=== PATIENT | female | born 1995 ===

== ENCOUNTER 2025-04-26 15:23 | Outpatient (AMB) | payer OTHER, SELFPAY ==
--- NOTE | 2025-04-26 15:34 | MHC.OFFVIS ---
Intake Visit Reasons: 6m bft migraine Allergies No Known Allergies Allergy (Verified 04/26/25 15:39) Medication List - Last Reconciled 04/26/25 by Mary Cortez CNP amitriptyline 20 mg PO aripiprazole 15 mg PO DAILY bupropion HCl XL 300 mg PO DAILY hydroxyzine HCl 25 mg PO DAILY ondansetron HCl mg PO propranolol ER (Inderal LA) 80 mg PO DAILY 90 days sumatriptan succinate mg PO HPI Comments Details: She was doing okay. Migraines were okay, getting about 4/month. Sumatriptan or Aleve as needed helped. Tremors were controlled with propranolol. No functional impairment. No difficulty eating or drinking. Sleep was okay. She was found to have elevated liver enzymes on lab testing, and had u/s and MRI which showed fatty-liver.? She started to get more migraines around 05/2024, having 13 migraines that month, 7 migraines in 06/2024, and 9 in 07/2024.?She lowered propranolol to 80mg as she was drowsy and attributed it to higher dose of propranolol. Began with migraines 2x/month in 12/2020. Grandmother has migraines. Has had tremors noted mostly in her hands since 2013 that got worse in 2019. Coworkers at work remarked about her hands shaking. Does not cause functional impairment. Strong family hx on father's side of tremors. Tremors worse with anxiety and stress. Does not consume any caffeine. She has been on high dose of Wellbutrin. No problems with mobility. [facility] Medical History (Updated 04/26/25 @ 15:36 by Mary Cortez CNP) Migraine PCOS (polycystic ovarian syndrome) Irritable bowel syndrome with diarrhea Depression with anxiety Benign familial tremor Family History (Updated 04/26/25 @ 15:38 by Mary Cortez CNP) Paternal Grandfather Tremor Sister Tremor Review of Systems Const Denies chills, Denies daytime sleepiness, Denies difficulty sleeping, Denies fatigue, Denies fever(s), Denies frequent falls, Reports headache(s), Denies increased appetite, Denies poor appetite, Denies snoring, Denies weakness, Denies weight gain and Denies weight loss Eyes Denies loss of vision ENT Denies vertigo, Denies dizziness, Reports headache(s) and Denies neck pain Card Denies chest pain at rest, Denies chest pain with activity, Denies syncope, Denies leg edema, Denies palpitations, Denies dyspnea and Denies dyspnea on exertion Resp Denies cough, Denies dyspnea, Denies dyspnea on exertion and Denies snoring GI Denies abdominal pain, Denies constipation, Denies heartburn, Denies diarrhea and Denies nausea Denies urinary frequency, Denies urinary incontinence and Denies urinary urgency Musc Denies abnormal gait, Denies back pain, Denies myalgias, Denies arthralgias, Denies neck pain, Denies numbness and Denies tingling Neuro Denies abnormal gait, Denies vertigo, Denies dizziness, Denies syncope, Denies frequent falls, Reports headache(s), Denies lack of coordination, Denies loss of vision, Denies memory loss, Denies numbness, Denies Other visual disturbances, Denies restless legs, Denies seizure-like activity, Denies tingling, Denies paresthesias, Reports tremor(s) and Denies weakness Psych Reports anxiety, Reports depression, Denies auditory hallucinations, Denies memory loss and Denies visual hallucinations Endo Denies fatigue and Denies palpitations Physical Exam Const Other: General Appearance:? normal, in no acute distress. Heart:? S1, S2 normal, no murmurs. Lungs:? clear anteriorly and posteriorly. Musculoskeletal:? normal. Extremities:? no edema. Psych:? alert, oriented, cognitive function intact, cooperative with exam. Neuro Other: Abnormal Neurological Findings:?Tremors of?bilateral upper extremities when held in an extended position with low amplitude high frequency tremor. Normal tone. No rest tremor. No change head or truncal tremor noted Mental Status: alert and oriented X 3. Normal attention, orientation, memory, and affect. Cranial Nerves: Pupils are equal, round, and reactive to light. External ocular muscles are intact. Visual munson are full, no ptosis. Face is symmetrical, no facial weakness or droop. Facial sensations are normal. Tongue protrudes in midline. Palate elevates symmetrically. Shoulder shrugging is normal Motor Examination: Normal muscle tone, bulk and strength. No atrophy or fasciculations. No drift of the extended upper extremities. DTR 2+. Plantars are flexor. Sensory Exam: Normal light touch, temperature, pinprick, vibration, and joint-position sensations. Rhomberg sign is absent. Coordination: No ataxia. No titubation. Bmegkt-ig-knpr, jmbu-hhyt-tgki test, and rapid alternating movements were normal. Gait Exam: Within normal limits. Cerebellar Signs: Fbwmpq-hh-hleq and wuvq-gz-vijs is normal. No dysdiadochokinesia. Extrapyramidal System: Tremor as above. No rigidity with normal facial expressions. No bradykinesia. No bradyphrenia. Normal arm swing and posture. No propulsion or retropulsion. Speech: Normal. No dysphasia or dysarthria. Assessment & Plan Assessment & Plan (1) Migraine: Code(s): G43.909 - Migraine, unspecified, not intractable, without status migrainosus Category: Medical Qualifiers: Migraine type: unspecified Status migrainosus presence: without status migrainosus Intractability: not intractable Qualified Code(s): G43.909 - Migraine, unspecified, not intractable, without status migrainosus Plan: Continue amitriptyline 10mg 2 tablets at bedtime. Continue sumatriptan 100mg 1 tablet as needed for migraine. Continue ondansetron 4mg 1 tablet as needed for nausea/vomiting. (2) Benign familial tremor: Code(s): G25.0 - Essential tremor Category: Medical Plan: Continue propranolol ER 80mg 1 capsule daily. Plan Meds tried: topiramate, propranolol (unable to tolerate >80mg), amitriptyline, sumatriptan Medications: New amitriptyline 20 mg (2 x 10 mg) PO BEDTIME 180 tabs 1RF 90 days Coding Level of Care Code Est Pt Level 4 (22654) Diagnoses Migraine without status migrainosus, not intractable, unspecified migraine type G43.909 Migraine type: unspecified Status migrainosus presence: without status migrainosus Intractability: not intractable Benign familial tremor G25.0
--- OUTSIDE RECORDS SUMMARY | 2025-04-26 16:39 | XMS_ITS | Clinical Summary ---
Author Organization [facility] Address [address] [place] [address] Phone Care Team Providers Care Embryology Professor Name Role Phone Vanessa Christina LICENSING OFFICER Primary Care Provider Un available Immunizations Immunization Administration Dates Next Due DTP 03/29/1998, 7,01/26/1997, 997 DTaP 5 10/22/2001 Hep A, ped/adol 06/08/2013,11/17/2012 Hep B, ped/adol 04/20/1997,1996,1996 Hib (PRP-T) 03/29/1998, 7,01/26/1997, 997 IPV 10/22/2001 MMR 10/19/2004,10/26/1997 Meningococcal Conj (Menactra) MCV4P 09/16/2013 OPV 04/20/1997,01/26/1997,1996 Tdap 02/02/2009 Typhoid, ViCPs 11/17/2012 Family History Relation Name Status Comments Brother Alive Brother: Alive and well Father Father: Cranial nerve palsy, cancer, skin, Obesity, Diabetes mellitus, Hyperlipidemia Mother Alive Mother: Hashimo to's Thyroiditis Niece Alive Niece: Alive an d well Other No family histo ry of *Sudden /VA under 55, No family history of *Thrombophilia, Family history of *Dental caries, Family history of *Heart Disease, No family history of *CVA/Stroke, Family history of Migraines Sister Alive Sister: Alive a nd well Social History Tobacco Use Types Packs/Day Years Used Date Smoking Tobacco: Never Comments:Never smoker Comments Unknown Sex and Gender Information Value Date Recorded Sex Assigned at Not on file Legal Sex Female 4:56 PM EDT Gender Identity Not on file Sexual Orientation Not on file Last Filed Vital Signs Vital Sign Reading Time Taken Comments Blood Pressure 116/70 12/01/2014 12:00 AM EDT Pulse 106 12/01/2014 12:00 AM EDT Temperature 36.5 C (97.7 F) 06/23/2014 12:00 AM EDT Respiratory Rate - - Oxygen Saturation - - Inhaled Oxygen Concentration - - Weight 50.6 kg (111 lb 9.6 oz) 12/01/2014 12:00 AM EDT Height 165.1 cm (5' 5 ) 12/01/2014 12:00 AM EDT Body Mass Index 18.57 12/01/2014 12:00 AM EDT Plan of Treatment Health Maintenance Due Date Last Done Comments Varicella Vaccines (1 of 2 - 13+ 2-dose series) 2009 DTaP,Tdap,and Td Vaccines (7 - Td or Tdap) 02/02/2019 02/02/2009, 10/22/2001, 03/29/1998, Additional history exists HPV Vaccines (1 - 3-dose SCDM series) 2023 COVID-19 Vaccine (2023- season) 2024 Influenza Vaccines (#1) 2025 Hepatitis B Vaccines Completed 04/20/1997, 1996, 1996 HIB Vaccines Completed 03/29/1998, 04/08, 01/26/1997, Additional history exists IPV Vaccines Completed 10/22/2001, 04/08, 01/26/1997, Additional history exists MMR Vaccines Completed 10/19/2004, 10/26/1997 Hepatitis A Vaccines Completed 06/08/2013, 11/18/19 13 Meningococcal Vaccine Completed 09/16/2013 Men B Vaccine Aged Out No longer elig ible based on patient's age to complete this topic Pneumococcal Vaccine Aged Out No long er eligible based on patient's age to complete this topic Care Teams Embryology Professor Relationship Specialty Start Date End Date Christina Mendez NP PCP - General 04/18/17
--- OUTSIDE RECORDS SUMMARY | 2025-04-26 16:39 | XMS_ITS | Patient Health Record ---
Author Organization [facility] Address [address] [place] [address] Care Team Providers Care Pyridine Recovery Operator Name Role Phone Heladio Gipson Primary Care Provider Che Wood Unavailable [phone] Allergies Allergen (clinical drug ingredient) Drug/Non Drug Allergy documented on EMR Reaction Allergy Type Onset Date Status Seasonal IC ITCHY EYES AND RUNNY NOSE Drug Allergy Active Reason For Referral No Information Medications Medication SIG (Take, Route, Frequency, Duration) Notes Start Date End Date Status buPROPion HCl ER (XL) 300 MG TAKE 1 TABLET BY MOUTH EVERY MORNING Oral; Duration: 90 Days Active SUMAtriptan Succinate 100 MG TAKE 1 TABLET BY MOUTH AT ONSET OF MIGRAINE EVERY 4 HOURS UP TO TWICE A DAY Oral; Duration: 22 Days Active ARIPiprazole 20 MG 1 tablet Orally Once a day; Duration: 30 day(s) 03/26/2023 Active Propranolol HCl ER 80 MG TAKE 1 CAPSULE BY MOUTH EVERY DAY Oral; Duration: 90 Days Active Cephalexin 500 MG 1 capsule Orally rodrick ry 12 hrs; Duration: 3 days Not-Taking Social History Tobacco Use: Social History Observation Description Date Details (start date - stop date) Never Smoker NA - NA Tobacco Use/Smoking Question Answer Notes Are you a: nonsmoker Additional Findings: Tobacco Non-User Current no n-smoker Alcohol Screen Question Answer Notes Did you have a drink containing alcohol in the p ast year? No Points 0 Interpretation Negative Tobacco use other than smoking: Question Answer Notes Are you an other tobacco user? No Plan Of Treatment No Information Insurance Providers Payer Name Payer Address Payer Phone Subscriber Number Group Number Insured Name Patient Relationship to Insured Coverage Start Date Coverage End Date [facility] [address] [facility] [place] [place] [address] [id number] Lily Crockett Self - patient is the insured Medical (General) History Medical History History ICD Code Anxiety Depression Headaches Chicken pox
--- OUTSIDE RECORDS SUMMARY | 2025-04-26 16:39 | XMS_ITS | Patient Health Record ---
Author Organization [facility] Address [address] [place] [id number] Care Team Providers Care Weighmaster Name Role Phone NIK () ANJELICA Primary Care Provider U Lynda Huerta Unavailable [phone] Allergies No Known Allergies Results Component Value Reference Range Notes Urinalysis Reviewed date:04/26/2024 03:08:16 PM Interpretation: Performing Lab: Notes/Report: PH 8.0 PROTEIN Neg GLUCOSE Neg BLOOD Neg Reason For Referral No Information Medications Medication SIG (Take, Route, Frequency, Duration) Notes Start Date End Date Status Claritin 10 MG 1 tablet Orally Once a day; Duration: 30 day(s) Active Kariva 0.15-0.02/0.01 MG (/5) 1 tablet Orally Once a day CONTINUOUSLY; Duration: 90 days 04/26/2024 Active buPROPion HCl ER (XL) 300 MG 1 tablet in the morning Orally Once a day Active ARIPiprazole 20 MG TAKE 1 TABLET BY EVERY DAY Oral; Duration: 30 Active Kariva 0.15-0.02/0.01 MG (21/5) 1 tablet Orally Once a day, Skip the last week of the pill pack and start a new pack right away. Take continuously; Duration: 90 days 04/18/2022 Active Propranolol HCl ER 80 MG 1 capsule Orall y Once a day Active Social History Tobacco Use: Social History Observation Description Date Details (start date - stop date) Never Smoker NA - NA Sexual History Question Answer Notes Had sex in the past 12 months (vaginal, oral, or anal)? No Have you ever had a Sexually transmitted disease ? No AUDIT-C (Standard) Question Answer Notes Did you have a drink containing alcohol in the p ast year? 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) Active confirmed Problem Oligomenorrhea (79616502) Oligomenorrhea, unspecified (N91.5) Active confirmed Problem Functional urinary incontinence (889384903) Functional urinary incontinence (R39.81) Active confirmed Problem Polycystic ovarian syndrome (E28.2) Active confirmed Vital Signs Temperature 98.1 degrees Fahrenheit 04/26/2024 Blood pressure diastolic 84 mm Hg 04/26/2024 Height 64 in 04/26/2024 Blood pressure systolic 110 mm Hg 04/26/2024 Weight 173 lbs 04/26/2024 BMI 29.69 kg/m2 04/26/2024 Encounters Encounter Location Date Provider Diagnosis [address] [facility] [address] [address] 04/26/2024 Lynda Rizo Encounter for gynecological examination (general) (routine) without abnormal findings Z01.419 ; Polycystic ovarian syndrome E28.2 ; Encounter for surveillance of contraceptives, unspecified Z30.40 and Other specified counseling Z71.89 [address] [address] 08/19/2024 Lynda Rizo Assessments Encounter Date Diagnosis (ICD Code) Assessment Notes Treatment Notes Treatment Clinical Notes Section Notes 04/26/2024 Encounter for gynecological examination (general) (routine) without abnormal findings (ICD-10 - Z01.419) NO PAP TEST, DUE IN 2027. 04/26/2024 Polycystic ovarian syndrome (ICD-10 - E28.2) DISCUSSED PCO AND SYMPTOMS ASSOCIATED WITH THIS. CONTINUE KARIVA, TAKE CONTINUOUSLY. 04/26/2024 Encounter for surveillance of contraceptives, unspecified (ICD-10 - Z30.40) SHOLA HAS NEVER BEEN SEXUALLY ACTIVE AND IS ON KARIVA FOR PCO. 04/26/2024 Other specified counseling (ICD-10 - Z71.89) SAFE SEX AND CAREFUL PARTNER SELECTION WHEN SHE DOES BECOME ACTIVE. Plan Of Treatment Pending Test Test Name Order Date Urinalysis 04/18/2022 COMPLETE URINALYSIS 04/24/2023 URINE CULTURE 04/24/2023 Next Appt Details Provider Name:Lynda bonilla, 04/27/2025 02:40:00 PM, [address], [address], [place], [address], Insurance Providers Payer Name Payer Address Payer Phone Subscriber Number Group Number Insured Name Patient Relationship to Insured Coverage Start Date Coverage End Date [facility] [address] [place] [address] [id number] VIELKA CASEY Self - patient is the insured Medical (General) History Medical History History ICD Code Major depressive disorder, single episod e, unspecified F32.9 Anxiety disorder, unspecified F41.9 Irritable bowel syndrome without diarrhe a K58.9 Other seasonal allergic rhinitis J30.2 Vitamin D deficiency, unspecified E55.9 Other specified irregular menstruation N 92.5 Major depressive disorder, recurrent, in full remission F33.42 Polycystic ovarian syndrome E28.2 Atypical squamous cells of u ndetermined significance on cytologic smear of cervix (ASC-US) R87.610 Oligomenorrhea, unspecified N91.5 Fibroadenosis of left breast N60.22 Functional urinary incontinence R39.81 Unspecified lump in the left breast, upp er outer quadrant N63.21 Surgical History Surgery Date(Month/Year) [place] Teeth Extraction 2015
== END 2025-04-26 15:44 | disposition home or self-care (01) ==
LOC: HO.HSM 15:23
PROVIDERS: Referring Provider Internal Medicine; Visit Provider Registered Nurse
DX: G43.909 Migraine, unspecified, not intractable, without status migrainosus (principal); G25.0 Essential tremor
CPT/HCPCS: 99214